=== PATIENT | female | born 1960 | race Caucasian/White ===

== ENCOUNTER → 2017-07-21 | Outpatient (CLI) | payer OTHER ==
--- NOTE | 2017-07-21 09:41 | CT ---
EXAMINATION TYPE: CT sinus wo con DATE OF EXAM: 07/21/2017 COMPARISON: NONE HISTORY: sinusitis CT DLP: [address] of the paranasal sinuses was performed in the axial and coronal planes. Bone and soft tissue settings are submitted. The paranasal sinuses demonstrate normal aeration and development. Minimal mucosal thickening right-sided ethmoid air cells. Remaining paranasal sinuses are well-aerate d. The osteal meatal units are patent bilaterally. The nasal septum is deviated from right to left. Incidental right-sided mara bullosa. No bony destructive changes are seen within the field of view. IMPRESSION: 1. Mild chronic sinusitis. 2. Nasal septal deviation from right to left with the mara bullosa right middle turbinate.
== END | disposition home or self-care (01) ==
LOC: RADCTMAIN 09:06
PROVIDERS: ATTEND Internal Medicine
DX: J32.9 Chronic sinusitis, unspecified (principal); J34.2 Deviated nasal septum; J34.9 Unspecified disorder of nose and nasal sinuses
CPT/HCPCS: 70486

== ENCOUNTER → 2017-07-21 | Outpatient (CLI) | payer OTHER ==
--- NOTE | 2017-07-22 09:36 | MM ---
Reason for exam: screening (asymptomatic). Last mammogram was performed 1 year and 2 months ago. History: Patient is postmenopausal, has history of endometrial cancer at age 20, and history of other cancer. Family history of breast cancer in maternal grandmother. Benign left mammotome panel of the left breast, March 29, 2012. Benign excisional biopsy of the right breast, July 30, 1998. Reductions of both breasts, 1998. Took hormonal contraceptives for 1 year. Physical Findings: A clinical breast exam by your physician is recommended on an annual basis and results should be correlated with mammographic findings. MG 3D Screening Mammo W/Cad Bilateral CC and MLO view(s) were taken. Prior study comparison: May 27, 2016, bilateral MG 3d screening mammo w/cad. May 22, 2015, bilateral MG screening mammo w CAD. There are scattered fibroglandular densities. No significant changes when compared with prior studies. ASSESSMENT: Benign, BI-RAD 2 RECOMMENDATION: Routine screening mammogram of both breasts in 1 year.
== END | disposition home or self-care (01) ==
LOC: RADMAMWWP 09:35
PROVIDERS: ATTEND Obstetrics & Gynecology
DX: Z12.31 Encounter for screening mammogram for malignant neoplasm of breast (principal); Z80.3 Family history of malignant neoplasm of breast
CPT/HCPCS: 77063; 77067

== ENCOUNTER → 2018-05-11 | Outpatient (CLI) | payer OTHER ==
[2018-05-11 12:26] VITALS: BMI 30.6
== END | disposition home or self-care (01) ==
LOC: MNTWWP 10:50
PROVIDERS: ATTEND Internal Medicine
DX: R73.03 Prediabetes (principal)
CPT/HCPCS: 97802

== ENCOUNTER → 2018-08-11 | Outpatient (CLI) | payer OTHER ==
--- NOTE | 2018-08-15 15:37 | MM ---
Reason for exam: screening (asymptomatic). Last mammogram was performed 1 year and 1 month ago. History: Patient is postmenopausal, has history of endometrial cancer at age 20, and history of other cancer. Family history of breast cancer in maternal grandmother. Benign left mammotome panel of the left breast, March 29, 2012. Benign excisional biopsy of the right breast, July 30, 1998. Reductions of both breasts, 1998. Took hormonal contraceptives for 1 year. MG 3D Screening Mammo W/Cad Bilateral CC and MLO view(s) were taken. Prior study comparison: July 21, 2017, bilateral MG 3d screening mammo w/cad. May 27, 2016, bilateral MG 3d screening mammo w/cad. There are scattered fibroglandular densities. Chronic nodularity in the right breast. No significant changes when compared with prior studies. ASSESSMENT: Benign, BI-RAD 2 RECOMMENDATION: Routine screening mammogram of both breasts in 1 year.
== END | disposition home or self-care (01) ==
LOC: RADMAMWWP 11:26
PROVIDERS: ATTEND Obstetrics & Gynecology
DX: Z12.31 Encounter for screening mammogram for malignant neoplasm of breast (principal)
CPT/HCPCS: 77063; 77067

== ENCOUNTER → 2019-08-12 | Outpatient (CLI) | payer OTHER ==
--- NOTE | 2019-08-15 09:36 | MM ---
Reason for exam: screening (asymptomatic). Last mammogram was performed 1 year ago. History: Patient is postmenopausal, has history of endometrial cancer at age 20, and history of other cancer. Family history of breast cancer in maternal grandmother. Benign left mammotome panel of the left breast, March 29, 2012. Benign excisional biopsy of the right breast, July 30, 1998. Reductions of both breasts, 1998. Took hormonal contraceptives for 1 year. Physical Findings: A clinical breast exam by your physician is recommended on an annual basis and results should be correlated with mammographic findings. MG 3D Screening Mammo W/Cad Bilateral CC, MLO, and XCCL view(s) were taken. Prior study comparison: August 11, 2018, bilateral MG 3d screening mammo w/cad. July 21, 2017, bilateral MG 3d screening mammo w/cad. There are scattered fibroglandular densities. Benign appearing bilateral calcifications. No suspicious abnormality. Stable post surgical change from bilateral breast reduction. No significant changes when compared with prior studies. ASSESSMENT: Benign, BI-RAD 2 RECOMMENDATION: Routine screening mammogram of both breasts in 1 year.
== END | disposition home or self-care (01) ==
LOC: RADMAMWWP 09:42
PROVIDERS: ATTEND Obstetrics & Gynecology
DX: Z12.31 Encounter for screening mammogram for malignant neoplasm of breast (principal)
CPT/HCPCS: 77063; 77067

== ENCOUNTER → 2019-09-02 | Outpatient (CLI) | payer OTHER ==
--- NOTE | 2019-09-02 11:49 | US ---
EXAMINATION TYPE: US kidneys/renal and bladder DATE OF EXAM: 09/02/2019 COMPARISON: Ultrasound dated 09/28/[address] dated 11/23/2015 CLINICAL HISTORY: R31.9 Hematuria,unspecified. One episode of hematuria per patient; prior renal ston es per patient EXAM MEASUREMENTS: Right Kidney: 11.0 x 5.3 x 4.6 cm Left Kidney: 11.6 x 5.3 x 5.9 cm Post Void Residual Volume: 22.4 mL Right Kidney: renal cortex tissue seen from periphery to renal hilum suggestive of prominent Column o f Tommy Left Kidney: superior cortical cyst = 1.7 x 1.8 x 1.5cm, retrospectively seen on the CT of 11/23/2015 w ith Hounsfield units of a simple cyst. Bladder: wnl Bilateral Jets seen: yes Normal Post Void Residual: yes There is no evidence for hydronephrosis at this point in time. No nephrolithiasis is seen. The urina ry bladder is anechoic. Bilateral ureteral jets are seen. IMPRESSION: Simple left renal cyst measuring 1.8 cm, otherwise unremarkable renal ultrasound. No hydr onephrosis or nephrolithiasis.
== END | disposition home or self-care (01) ==
LOC: RADUSWWP 09:12
PROVIDERS: ATTEND Internal Medicine
DX: N28.1 Cyst of kidney, acquired (principal)
CPT/HCPCS: 76770

== ENCOUNTER → 2020-11-27 | Outpatient (CLI) | payer OTHER ==
--- NOTE | 2020-11-28 13:42 | MM ---
Reason for exam: screening (asymptomatic). Last mammogram was performed 1 year and 4 months ago. History: Patient is postmenopausal, has history of endometrial cancer at age 20, and history of other cancer. Family history of breast cancer in maternal grandmother. Benign left mammotome panel of the left breast, March 29, 2012. Benign excisional biopsy of the right breast, July 30, 1998. Reductions of both breasts, 1998. Took hormonal contraceptives for 1 year. Physical Findings: A clinical breast exam by your physician is recommended on an annual basis and results should be correlated with mammographic findings. MG 3D Screening Mammo W/Cad Bilateral CC and MLO view(s) were taken. Prior study comparison: August 12, 2019, bilateral MG 3d screening mammo w/cad. August 11, 2018, bilateral MG 3d screening mammo w/cad. No significant changes when compared with prior studies. ASSESSMENT: Benign, BI-RAD 2 RECOMMENDATION: Routine screening mammogram of both breasts in 1 year.
== END | disposition home or self-care (01) ==
LOC: RADMAMWWP 09-28 11:03
PROVIDERS: ATTEND Obstetrics & Gynecology
DX: Z12.31 Encounter for screening mammogram for malignant neoplasm of breast (principal); Z78.0 Asymptomatic menopausal state; Z80.3 Family history of malignant neoplasm of breast
CPT/HCPCS: 77063; 77067

== ENCOUNTER → 2021-12-02 | Outpatient (CLI) | payer OTHER ==
--- NOTE | 2021-12-04 10:54 | MM ---
Reason for Exam: Screening (asymptomatic). Last screening mammogram was performed 12 month(s) ago. Patient History: Menarche at age 9. First Full-Term at age 18. Hysterectomy at age 20. Postmenopausal. Endometrial cancer, age 20. Other cancer. Patient used Hormonal Contraceptives for 1 year. 1998, Bilateral Reduction. 03/29/2012, Benign Core Biopsy on the left side. 07/30/1998, Benign Excisional Biopsy on the right side. Maternal grandmother had breast cancer. Risk Values: Nuha 5 year model risk: 2.3%. NCI Lifetime model risk: 10.0%. Film Views: Bilateral CC views were taken. Bilateral MLO views were taken. Right AT views were taken. Prior Study Comparison: 08/11/2018 Bilateral Screening Mammogram, [facility]. 08/12/2019 Bilateral Screening Mammogram, [facility]. 11/27/2020 Bilateral Screening Mammogram, [facility]. Tissue Density: There are scattered fibroglandular densities. Findings: Analyzed By CAD. No significant changes when compared with prior studies. Previous mammotome biopsy within the left breast. Chronic nodularity in the right breast. Overall Assessment: Benign, BI-RAD 2 Management: Screening Mammogram of both breasts in 1 year.
== END | disposition home or self-care (01) ==
LOC: RADMAMWWP 10:01
PROVIDERS: ATTEND Obstetrics & Gynecology
DX: Z12.31 Encounter for screening mammogram for malignant neoplasm of breast (principal); Z80.3 Family history of malignant neoplasm of breast; Z78.0 Asymptomatic menopausal state
CPT/HCPCS: 77063; 77067

== ENCOUNTER → 2022-12-25 | Outpatient (CLI) | payer OTHER ==
--- NOTE | 2022-12-29 08:19 | MM ---
Reason for Exam: Screening (asymptomatic). Last mammogram was performed 1 year(s) and 1 month(s) ago. Patient History: Menarche at age 9. First Full-Term at age 18. Hysterectomy at age 20. Postmenopausal. Endometrial cancer, age 20. Other cancer. Patient used Hormonal Contraceptives for 1 year. 1998, Bilateral Reduction. 03/29/2012, Benign Core Biopsy on the left side. 07/30/1998, Benign Excisional Biopsy on the right side. Maternal grandmother had breast cancer, age 64. Risk Values: Nuha 5 year model risk: 2.4%. NCI Lifetime model risk: 9.4%. Prior Study Comparison: 08/12/2019 Bilateral Screening Mammogram, [facility]. 11/27/2020 Bilateral Screening Mammogram, [facility]. 12/02/2021 Bilateral MG 3D screening mammo w/cad, [facility]. Tissue Density: The breast tissue is almost entirely fat. Findings: Analyzed By CAD. There is no suspicious group of microcalcifications or new suspicious mass in either breast. Overall Assessment: Negative, BI-RAD 1 Management: Screening Mammogram of both breasts in 1 year. . Patient should continue monthly self-breast exams. A clinical breast exam by your physician is recommended on an annual basis. This exam should not preclude additional follow-up of suspicious palpable abnormalities. Note on Nuha scores and lifetime risk: 1. A Nuha score greater than 3% is considered moderate risk. If this is the case, consider specialist referral to assess eligibility for a risk reducing agent. 2. If overall lifetime risk for the development of breast cancer is 20% or higher, the patient may qualify for future screening with alternating mammogram and breast MRI. Electronically signed and approved by: Luigi Reyes M.D. Radiologis
== END | disposition home or self-care (01) ==
LOC: RADMAMWWP 11:50
PROVIDERS: ATTEND Obstetrics & Gynecology
DX: Z12.31 Encounter for screening mammogram for malignant neoplasm of breast (principal); Z78.0 Asymptomatic menopausal state; Z80.3 Family history of malignant neoplasm of breast
CPT/HCPCS: 77063; 77067

== ENCOUNTER → 2024-04-14 | Outpatient (CLI) | payer MEDICARE ==
--- NOTE | 2024-04-17 10:19 | MM ---
Reason for Exam: Screening (asymptomatic). Last mammogram was performed 1 year(s) and 3 month(s) ago. Patient History: Menarche at age 9. First Full-Term at age 18. Hysterectomy at age 20. Postmenopausal. Endometrial cancer, age 20. Other cancer. Patient used Hormonal Contraceptives for 1 year. 1998, Bilateral Reduction. 03/29/2012, Benign Core Biopsy on the left side. 07/30/1998, Benign Excisional Biopsy on the right side. Maternal grandmother had breast cancer, age 64. Risk Values: Nuha 5 year model risk: 2.4%. NCI Lifetime model risk: 9.1%. Prior Study Comparison: 11/27/2020 Bilateral Screening Mammogram, [facility]. 12/02/2021 Bilateral MG 3D screening mammo w/cad, [facility]. 12/25/2022 Bilateral MG 3D screening mammo w/cad, [facility]. Tissue Density: There are scattered areas of fibroglandular density. Findings: Analyzed By CAD. The pattern is symmetrical. No significant interval change evident. Clip is within the left breast. No suspicious groups of microcalcifications, spiculated or lobular masses, architectural distortion or other secondary signs of malignancy are mammographically apparent. Overall Assessment: Benign, BI-RAD 2 Management: Screening Mammogram of both breasts in 1 year. A negative mammogram report should not preclude additional follow up of suspicious palpable abnormalities. Patient should continue monthly self breast exam. A clinical breast exam by your physician is recommended on an annual basis and results should be correlated with mammographic findings. Note on Nuha scores and lifetime risk: 1. A Nuha score greater than 3% is considered moderate risk. If this is the case, consider specialist referral to assess eligibility for a risk reducing agent. 2. If overall lifetime risk for the development of breast cancer is 20% or higher, the patient may qualify for future screening with alternating mammogram and breast MRI. [facility], , 04/17/2024 10:16 AM. Electronically signed and approved by: Kiel Weinstein D.O. Radiologis
== END | disposition home or self-care (01) ==
LOC: RADMAMWWP 11:27
PROVIDERS: ATTEND Obstetrics & Gynecology
DX: Z12.31 Encounter for screening mammogram for malignant neoplasm of breast
CPT/HCPCS: 77063; 77067

== ENCOUNTER → 2024-11-07 | Outpatient (CLI) | payer MEDICARE ==
--- NOTE | 2024-11-07 10:13 | CA ---
Transthoracic Echo Report Name: Mitzy Groves Age: 63 Gender: F : 1960 Exam Date: 11/07/2024 08:53 Exam Location: [facility] Ht (in): 63 Wt (lb): 184 Ordering Physician: Adam Hooker MD Attending/Referring Phys: Luz Torres [facility] Manager Architectural Mira Goldstein RDCS Procedure CPT: Indications: R01.1 CARDIAC MURMUR, UNSPECIFIED Cardiac Hx: Technical Quality: Fair Contrast 1: Total Dose (mL): Contrast 2: Total Dose (mL): MEASUREMENTS (Male / Female) Normal Values 2D ECHO LV Diastolic Diameter PLAX 4.7 cm 4.2 - 5.9 / 3.9 - 5.3 cm LV Systolic Diameter PLAX 3.4 cm IVS Diastolic Thickness 1.1 cm 0.6 - 1.0 / 0.6 - 0.9 cm LVPW Diastolic Thickness 1.1 cm 0.6 - 1.0 / 0.6 - 0.9 cm LV Relative Wall Thickness 0.5 RV Internal Dim ED PLAX 3.0 cm LVOT Diameter 1.9 cm LA Systolic Diameter LX 3.6 cm 3.0 - 4.0 / 2.7 - 3.8 cm LV Diastolic Volume MOD 4C 53.1 cm??? LV Systolic Volume MOD 4C 26.4 cm??? LV Ejection Fraction MOD 4C 50.3 % LV Cardiac Index MOD 4C 1240.6 cm???/min???m??? LV Diastolic Length 4C 8.1 cm LV Systolic Length 4C 7.3 cm LV Diastolic Volume MOD 2C 85.3 cm??? LV Systolic Volume MOD 2C 34.9 cm??? LV Ejection Fraction MOD 2C 59.1 % LV Cardiac Index MOD 2C 2341.8 cm???/min???m??? LV Diastolic Length 2C 8.1 cm LV Systolic Length 2C 6.5 cm DOPPLER AV Peak Velocity 279.1 cm/s AV Peak Gradient 33.3 mmHg AV Mean Velocity 167.6 cm/s AV Mean Gradient 14.0 mmHg AV Velocity Time Integral 49.5 cm LVOT Peak Velocity 146.1 cm/s LVOT Peak Gradient 8.5 mmHg LVOT Velocity Time Integral 30.8 cm LVOT Stroke Volume 86.6 cm??? LVOT Stroke Volume Index 46.4 ml/m??? LVOT Cardiac Index 4021.4 cm???/min???m??? AV Area Cont Eq vti 1.8 cm??? AV Area Cont Eq pk 1.5 cm??? Mitral E Point Velocity 89.3 cm/s Mitral A Point Velocity 105.4 cm/s Mitral E to A Ratio 0.8 MV Deceleration Time 283.4 ms TR Peak Velocity 14.2 cm/s TR Peak Gradient 0.1 mmHg FINDINGS Left Ventricle Left ventricular ejection fraction is estimated at 55-60 %. Left ventricular cavity size normal. Normal left ventricular systolic function with no obvious regional wall motion abnormalities. Mildly increased left ventricular wall thickness. Right Ventricle Normal right ventricular size. Unable to estimate the right ventricular systolic pressure. Right Atrium Normal right atrial size. No right atrial thrombus or mass seen. Left Atrium Normal left atrial size. No left atrial thrombus or mass present. Mitral Valve Structurally normal mitral valve. No evidence for mitral valve prolapse. No mitral stenosis. Trace mitral regurgitation. Aortic Valve Trileaflet aortic valve. Aortic valve sclerosis. Mild aortic stenosis with a peak gradient of 33 mmHg and a mean gradient of 14 mmHg. No aortic regurgitation. Tricuspid Valve Structurally normal tricuspid valve. No tricuspid stenosis, regurgitation or prolapse. Pulmonic Valve Structurally normal pulmonic valve. Trace pulmonic regurgitation. Pericardium No pericardial effusion. Aorta Normal size aortic root and proximal ascending aorta. CONCLUSIONS 1. Normal ventricular size and systolic function 2. Mild aortic stenosis with a mean gradient of 14 mmHg Previewed by: Dr. León Hansen MD (Electronically Signed) Final Date: 07 November 2024 10:12
== END | disposition home or self-care (01) ==
LOC: RADECHMAIN 08:39
PROVIDERS: ATTEND Family Medicine
DX: I35.0 Nonrheumatic aortic (valve) stenosis (principal); R01.1 Cardiac murmur, unspecified
CPT/HCPCS: 93306